=== PATIENT | female | born 1985 | race American Indian/Alaskan Native ===

== ENCOUNTER 2021-03-22 11:25 | Inpatient (IN) | payer OTHER ==
[2021-03-22] MEDS ORDERED: fentaNYL 100 MCG/2 ML INJ IV PRN (12:33)
[2021-03-22] MEDS ORDERED: TERBUTALINE 1 MG/1 ML INJ SUB-Q PRN (12:33)
[2021-03-22] MEDS ORDERED: OXYTOCIN 10 UNIT/1 ML INJ IM PRN (12:33)
[2021-03-22] MEDS ORDERED: METHYLERGONOVINE MALEATE 0.2 MG/ML VIAL IM PRN (12:33)
[2021-03-22] MEDS ORDERED: CARBOPROST TROMETHAMINE 250 MCG/1 ML INJ IM PRN (12:33)
[2021-03-22] MEDS ORDERED: ePHEDrine SULFATE 50 MG/1 ML INJ IV PRN ×2 (12:33→14:52)
[2021-03-22] MEDS ORDERED: BUTORPHANOL 2 MG/1 ML INJ IV PRN (12:33)
[2021-03-22] MEDS ORDERED: ACETAMINOPHEN 325 MG TAB PO PRN ×2 (12:33→17:15)
[2021-03-22] MEDS ORDERED: ONDANSETRON 4 MG/2 ML INJ IV PRN ×2 (12:33→17:15)
[2021-03-22] MEDS ORDERED: LOPERAMIDE 2 MG CAP PO PRN (12:33)
[2021-03-22] MEDS ORDERED: MINERAL OIL 30 ML ORAL LIQD PO PRN (12:33)
[2021-03-22] MEDS ORDERED: PROMETHAZINE 25 MG TAB PO PRN ×2 (12:33→17:15)
[2021-03-22] MEDS ORDERED: miSOPROStol 200 MCG TAB PR PRN (12:33)
[2021-03-22] MEDS ORDERED: NALOXONE 0.4 MG/1 ML INJ IV PRN (12:33)
[2021-03-22] MEDS ORDERED: LIDOCAINE (2%) 20 MG/1 ML VIAL 20 ML MDV INFILTRATI ONE (12:33)
--- NOTE | 2021-03-22 12:33 | History and Physical Report ---
History of Present Illness Date of examination: 03/22/21 Date of admission: 03/22/2021 Chief complaint: My water broke at 0930 and I'm michele. History of present illness: Presented to triage with c/o SROM @ 0930 am today for clear fluid and contractions. Cervical exam was 5/80/-2 with a small amount of clear fluid noted on peripad underneath patient. Also, a small amount of bloody show noted on pad and exam glove. EDC 03/21/2021 40.1 weeks on admission Past History : 8 Term Births: 6 Premature Births: 1 Living Children: 5 Spont. Ab: 1 # 1 Delivery date: 2001 Weeks Gestation: 40 Delivery type: Delivery location: [place] Sex: Female weight: 8-15 Comments: No complications # 2 Delivery date: 2008 Weeks Gestation: 37 Delivery type: Delivery location: [place] Sex: Female weight: 6-4 Comments: ? elevated BP's no medication, No IOL # 3 Delivery date: 2010 Weeks Gestation: 34 Delivery type: Delivery location: [place] Sex: Male weight: 6-9 Comments: Preeclampsia,spontaneous labor, No IOL, GDM # 4 Delivery date: 2012 Weeks Gestation: 39 Delivery type: Delivery location: [place] Sex: Male weight: 7-5 Comments: No complications # 5 Delivery date: 2015 Weeks Gestation: 37 Delivery type: Delivery location: [place] Sex: Male weight: 6-3 Comments: No complications # 6 Delivery date: 2018 Weeks Gestation: 38 Delivery type: Delivery location: [place] Sex: Male weight: 6-0 Comments: IOL, preclampsia # 7 Delivery date: 2013 Delivery type: SAB Comments: D&C Past Medical History: Sickle cell trait Enlarged thyroid Past Surgical History: D&C: Family History Summary: Other Family Member - Has No Family History of Uterine Cancer - Entered On: 10/06/2020 Other Family Member - Has No Family History of Stomach Cancer - Entered On: 10/06/2020 Other Family Member - Has No Family History of Spontaneous DVT-PE - Entered On: 10/06/2020 Other Family Member - Has No Family History of Small Bowel Cancer - Entered On: 10/06/2020 Other Family Member - Has No Family History of Pancreatic Cancer - Entered On: 10/06/2020 Other Family Member - Has No Family History of Ovarvian Cancer - Entered On: 10/06/2020 Other Family Member - Has No Family History of Kidney/Urinary Tract Cancer - Entered On: 10/06/2020 Other Family Member - Has No Family History of Colon Cancer - Entered On: 10/06/2020 Other Family Member - Has No Family History of Brain Cancer - Entered On: 10/06/2020 Other Family Member - Has No Family History of Biliary Tract Cancer - Entered On: 10/06/2020 Aunt - Has Family History of Cervical Cancer - paternal - Entered On: 10/06/2020 Aunt - Has Family History Breast Cancer - paternal - Entered On: 10/06/2020 Social History: Patient is single Smoking History: Patient is a former smoker. 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 Infection History Hx of STD: chlamydia HIV Risk Eval: no Personal hx. of genital herpes: no Partner hx. of genital herpes: no Rash, Viral, or Febrile illness since last LMP? no Varicella/Chicken Pox Status: Previous Disease TB Risk: no Infection History Comments: GC, trich Genetic History Congenital Heart Defect: Mom: no Dad: no Juany Disease: Mom: no Dad: no Thalassemia Mom: no Dad: no Neural Tube Defect Mom: no Dad: no Down's Syndrome Mom: no Dad: no Walker-Sachs Mom: no Dad: no Sickle Cell Disease/Trait Mom: yes Dad: no Comments: children Hemophilia Mom: no Dad: no Muscular Dystrophy Mom: no Dad: no Cystic Fibrosis Mom: no Dad: no Cornelius Chorea Mom: no Dad: no Mental Retardation Mom: no Dad: no Fragile X Mom: no Dad: no Other Genetic/Chromosomal Disorder Mom: no Dad: no Child w/other defect Mom: no Dad: no Enviromental Exposures Enviromental Exposures Reviewed Xray Exposure: no Medication, drug, or alcohol use since LMP: no Chemical/Other Exposure: no Exposure to Cat Liter: no Hx of Parvovirus (Fifth Disease): no Occupational Exposure to Children: other Current Allergies (reviewed today): No known allergies Past History Past Medical History: no pertinent history Past Surgical History: no surgical 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 Family/Genetic History: none Social history: no significant social history - Obstetrical History Expected Date of Delivery: 03/21/21 Actual Gestation: 40 Week(s) 1 Day(s) : 8 Para: 6 Hx # Term Pregnancies: 5 Number of Pregnancies: 1 Spontaneous Abortions: 1 Induced : 0 Number of Living Children: 6 Medications and Allergies Allergies Allergy/AdvReac Type Severity Reaction Status Date / Time No Known Allergies Allergy Unverified 03/22/21 12:53 Home Medications Medication Instructions Recorded Confirmed Last Taken Type No Known Home Medications [No 03/22/21 03/22/21 Unknown History Reported Home Medications] Review of Systems All systems: negative - Vital Signs Vital signs: Vital Signs Pulse Pulse Ox 76 99 03/22/21 11:58 03/22/21 11:58 Temp Pulse Resp BP Pulse Ox 88 129/76 99 03/22/21 12:28 03/22/21 11:59 03/22/21 12:28 - Physical Exam Breasts: Positive: deferred Cardiovascular: Regular rate Lungs: Positive: Normal air movement Abdomen: Positive: normal appearance, soft Genitourinary (Female): Positive: normal external genitalia, normal perenium Vulva: both: normal Vagina: Positive: normal moisture Uterus: Positive: normal size (For 40 weeks gestation. ) Extremities: Positive: normal - Obstetrical FHR: category 1 Uterine Contraction Monitor Mode: External Cervical Dilatation: 5 (No BOW felt during exam. ) Cervical Effacement Percentage: 80 station: -2 Uterine Contraction Pattern: Regular Uterine Tone Measurement Phase: Resting Uterine Contraction Intensity: Moderate Results All other labs normal. GBS NEGATIVE HBsAg Screen Negative Negative *1 RPR Non Reactive Non Reactive *2 Rubella Antibodies, IgG 3.53 index Immune >0.99 *3 Non-immune <0.90 Equivocal 0.90 - 0.99 Immune >0.99 ABO Grouping O *4 Rh Factor Positive *5 Please note: Prior records for this patient's ABO / Rh type are not available for additional verification. Antibody Screen Negative Negative *6 Tests: (5) HIV Ag/Ab with Reflex (818416) HIV Screen 4th Generation wRfx Non Reactive Non Reactive *39 Tests: (7) HCV Antibody reflex to TIM ([id number]) ! HCV Ab <0.1 s/co ratio 0.0-0.9 *41 Tests: (8) Interpretation: ([id number]) ! Interpretation: SPRCS *42 Negative Not infected with HCV, unless recent infection is suspected or other evidence exists to indicate HCV infection. Assessment and Plan A: 35 y.o. @ 40.1 wks, SROM @ 0930am clear fluid. Cervical exam /-2. - Patient Problems (1) Rupture of membranes with clear amniotic fluid Onset Date: ~03/22/21 Current Visit: Yes Status: Acute Plan to address problem: Check maternal temperature every 2 hours while in labor. (2) Post term over 40 weeks Current Visit: Yes Status: Acute Plan to address problem: Admit to labor and delivery. Initiate IV. Drawn admission labs. IV fluid bolus for epidural placement. Anticipate .
[2021-03-22] MEDS ORDERED: LACTATED RINGERS 1,000 ML IV SCH (12:45)
[2021-03-22] MEDS ORDERED: OXYTOCIN DRIP 30 UNITS/500 ML BAG IV SCH ×3 (13:00→18:00)
[2021-03-22 14:18] LABS: Hematocrit 31.7 % (30.3-42.9); Hemoglobin 10.7 gm/dl (10.1-14.3); Mean Corpuscular HGB Conc 34 % (30-34); Mean Corpuscular Volume 76 fl (79-97); Platelet Count 234 K/mm3 (140-440); Red Blood Count 4.19 M/mm3 (3.65-5.03)
[2021-03-22] MEDS ORDERED: fentaNYL-BUPIV 2 MCG/ML-0.125% 200 MCG/100 ML BAG EPIDURAL ONE (14:23)
[2021-03-22] MEDS ORDERED: BUPIVACAINE/PF (0.25%) 2.5 MG/ML 10 ML VIAL INFILTRATI ONE (14:43)
--- NOTE | 2021-03-22 14:51 | Anesthesia Consultation ---
Anesthesia Consult and Med Hx Date of service: 03/22/21 - Airway Anesthetic Teeth Evaluation: Poor ROM Head & Neck: Adequate Mental/Hyoid Distance: Adequate Mallampati Class: Class II Intubation Access Assessment: Good - Pulmonary Exam CTA: Yes - Cardiac Exam Cardiac Exam: RRR - Pre-Operative Health Status ASA Pre-Surgery Classification: ASA2 Proposed Anesthetic Plan: Epidural - Pulmonary Hx Smoking: Yes (stop 07/2020) Hx Asthma: No Hx Respiratory Symptoms: No SOB: No COPD: No Home Oxygen Therapy: No Hx Pneumonia: No Hx Sleep Apnea: No - Cardiovascular System Hx Hypertension: No Hx Coronary Artery Disease: No Hx Heart Attack/AMI: No Hx Angina: No Hx Percutaneous Transluminal Coronary Angioplasty (PTCA): No Hx Cardia Arrhythmia: No Hx Pacemaker: No Hx Internal Defibrillator: No Hx Valvular Heart Disease: No Hx Heart Murmur: No Hx Peripheral Vascular Disease: No - Central Nervous System Hx Neuromuscular Disorder: No Hx Seizures: No CVA: No Hx Back Pain: Yes Hx Psychiatric Problems: No - Gastrointestinal Hx Ulcer: No Hx Gastroesophageal Reflux Disease: Yes - Endocrine Hx Renal Disease: No Hx End Stage Renal Disease: No Hx Cirrhosis: No Hx Liver Disease: No Hx Insulin Dependent Diabetes: No Hx Non-Insulin Dependent Diabetes: No Hx Thyroid Disease: No Hx Hypothyroidism: No Hx Hyperthyroidism: No - Hematic Hx Anemia: No Hx Sickle Cell Disease: No - Other Systems Hx Alcohol Use: No Hx Substance Use: No Hx Cancer: No Hx Obesity: Yes
[2021-03-22] MEDS ORDERED: NALOXONE 2 MG/2 ML INJ IV PRN (14:52)
[2021-03-22] MEDS ORDERED: fentaNYL-BUPIV 2 MCG/ML-0.125% 200 MCG/100 ML BAG EPIDURAL SCH (15:00)
--- NOTE | 2021-03-22 15:25 | Progress Note ---
Labor Epidural - Labor Epidural Start Time: 14:59 Stop Time: 15:10 Performed by:: JOSE HOLT Procedure: Patient is requesting a laboring epidural for laboring pain. Patient IDed, H&P reviewed, all questions and concerns were answered, and consent was signed. Timeout was performed at bedside. Patient in sitting position. Sterile prep and drape was performed. [3] ml of 1% lidocaine skin wheal at L[3]- L [4]. 18- gauge Princess epidural needle was advanced to loss of resistance with saline technique 7cm. Negative CSF negative blood. Epidural catheter advanced to [11] centimeters. [NEGATIVE] Aspiration [NEGATIVE] test dose. Sterile dressing applied. Patient tolerated procedure.
--- NOTE | 2021-03-22 17:12 | Procedure Note ---
OB Delivery Note - Delivery Date of Delivery: 03/22/21 Landcare Officer: ARIANA ANDRESON Estimated blood loss: other (150 ml) - Vaginal Delivery presentation: vertex Delivery position: OA Intrapartum events: none Delivery induction: none Delivery augmentation: pitocin Delivery monitor: external FHT, external uterine Route of delivery: Delivery placenta: spontaneous Delivery cord: 3 umbilical vessels Episiotomy: none Delivery laceration: none Anesthesia: epidural Delivery comments: of viable male infant. Infant to mother's abdomen for skin to skin. Cord cut by FOC after cessation of pulse. Spontaneous delivery of placenta, intact, complete, 3 vessels noted. Perineum and vagina inspected. No lacerations noted. Fundus firm, minimal bleeding noted. EBL 150ml. Apgars 9,9. Infant weight 8-0. Sponges and instruments counted with RN and correct. Infant and mother left in stable condition in care of RN. - A at 1 minute: 9 at 5 minutes: 9 Gender: Male (8-0. Noel)
[2021-03-22] MEDS ORDERED: HYDROCORTISONE 25 MG RECTAL SUPP PR PRN (17:15)
[2021-03-22] MEDS ORDERED: BENZOCAINE/MENTHOL 20/0.5% TOP SPRAY 56 GM TP PRN (17:15)
[2021-03-22] MEDS ORDERED: WITCH HAZEL/ GLYCERIN PAD TP PRN (17:15)
[2021-03-22] MEDS ORDERED: PROMETHAZINE 25 MG RECT SUPP PR PRN (17:15)
[2021-03-22] MEDS ORDERED: oxyCODONE /ACETAMINOPHEN 5-325MG TAB PO PRN (17:15)
[2021-03-22] MEDS ORDERED: MAGNESIUM HYDROXIDE (MOM) ORAL LIQD UDC PO PRN (17:15)
[2021-03-22] MEDS ORDERED: miSOPROStol 100 MCG TAB PR PRN (17:15)
[2021-03-22] MEDS ORDERED: diphenhydrAMINE 25 MG CAP PO PRN (17:15)
[2021-03-22] MEDS ORDERED: LANOLIN/ZINC/DIMETHICONE (LANSINOH) 7 GM TP PRN ×2 (17:15)
[2021-03-22] MEDS ORDERED: ACETAMINOPHEN 500 MG TAB PO PRN (17:49)
[2021-03-23] MEDS ORDERED: TETANUS,DIPH,PERTUSS(ACELL) VACCINE 0.5 ML SYRINGE IM ONE (06:00)
[2021-03-23] MEDS: IBUPROFEN 600 MG TAB PO SCH ×3 (09:56→22:05)
[2021-03-23] MEDS: PRENATAL VIT27-FE FUMARATE-FOLIC ACID VIT TAB PO SCH (09:57)
[2021-03-23] MEDS: DOCUSATE SODIUM 100 MG CAP PO SCH ×2 (09:57→22:05)
[2021-03-23 10:23] LABS: Hematocrit 31.2 % (30.3-42.9); Hemoglobin 10.5 gm/dl (10.1-14.3)
--- NOTE | 2021-03-23 10:37 | Progress Note ---
Assessment and Plan Pt denies CALERO, vision changes, and pain at this time. Reports desires for discharge home, circumcision, and Nuvaring for PP BC. Elevated BP and severe PP risks reviewed with pt, including but not limited to seizure, stroke, heart attack, and . POC d/w pt for continued monitoring in hospital and antihypertensives PO. Pt reports increased pain when BP taken this am. Pt declines POC and reports desires to d/c home AMA at this time. Dr Gandhi made aware. @1240 repeat BP 156/90; CNM @bedside, Pt denies CALERO, vision changes, and pain at this time. POC reviewed for continued admission with antihypertensives PO and Pt agrees. Orders placed for Preeclampsia labs per Dr Gandhi request. - Patient Problems (1) Elevated BP without diagnosis of hypertension Current Visit: Yes Status: Acute Plan to address problem: Dr Gandhi made aware Labetalol 200mg BID ordered and d/w pt Monitor closely and notify provider with any changes in status (2) Spontaneous vaginal delivery Current Visit: Yes Status: Acute Subjective - Subjective Date of service: 03/23/21 Principal diagnosis: PP day #0, Patient reports: appetite normal, voiding normally, pain well controlled, ambulating normally, no dizzy ambulation, no appetite poor, no nauseated [place]: doing well Objective - Vital Signs Latest vital signs: Vital Signs Temp Pulse Resp BP BP Pulse Ox Pulse Ox 03/23/21 08:20 97.7 F 58 L 16 144/85 98 03/23/21 05:27 14 03/23/21 04:16 12 03/23/21 04:08 98.0 F 68 18 134/84 100 03/23/21 00:30 98.6 F 78 18 115/78 03/22/21 22:00 98.5 F 80 14 123/76 98 98 03/22/21 20:58 64 99 03/22/21 20:53 66 98 03/22/21 20:48 79 97 03/22/21 20:43 73 98 03/22/21 20:38 77 99 03/22/21 20:33 69 98 03/22/21 20:28 67 98 03/22/21 20:23 68 99 03/22/21 20:18 60 99 03/22/21 20:13 64 99 03/22/21 20:08 70 99 03/22/21 20:03 71 98 03/22/21 19:58 72 98 03/22/21 19:53 74 98 03/22/21 19:48 70 99 03/22/21 19:44 99 03/22/21 19:43 98.0 F 66 20 99 03/22/21 19:42 69 120/75 03/22/21 19:41 46 L 83 L 03/22/21 18:13 62 117/73 03/22/21 18:11 66 97 03/22/21 18:05 69 98 03/22/21 18:00 68 99 03/22/21 17:58 63 117/84 94 03/22/21 17:55 61 98 03/22/21 17:50 66 98 03/22/21 17:47 69 89 03/22/21 17:45 67 99 03/22/21 17:43 71 116/81 03/22/21 17:40 68 99 03/22/21 17:35 69 100 03/22/21 17:33 83 93 03/22/21 17:30 82 97 03/22/21 17:28 75 117/69 03/22/21 17:27 84 82 L 03/22/21 17:26 98.2 F 16 03/22/21 17:25 80 92 03/22/21 17:22 58 L 85 03/22/21 17:20 79 99 03/22/21 17:16 86 93 03/22/21 17:15 84 98 03/22/21 17:13 74 117/69 03/22/21 17:10 190 H 97 03/22/21 17:05 84 90 03/22/21 17:04 49 L 86 03/22/21 17:02 71 120/75 03/22/21 17:00 75 99 03/22/21 16:58 75 114/65 03/22/21 16:54 86 98 03/22/21 16:52 87 90 03/22/21 16:49 82 97 03/22/21 16:44 73 117/69 98 03/22/21 16:39 67 99 03/22/21 16:34 77 97 03/22/21 16:32 72 94 03/22/21 16:29 72 125/80 95 03/22/21 16:24 74 99 03/22/21 16:19 79 98 03/22/21 16:14 76 97 03/22/21 16:13 77 136/88 03/22/21 16:09 75 99 03/22/21 16:04 82 98 03/22/21 16:00 82 137/85 03/22/21 15:59 80 99 03/22/21 15:54 81 99 03/22/21 15:49 80 98 03/22/21 15:44 81 137/83 96 03/22/21 15:39 92 H 99 03/22/21 15:34 91 H 99 03/22/21 15:29 85 97 03/22/21 15:28 80 137/78 03/22/21 15:24 78 135/72 98 03/22/21 15:20 16 03/22/21 15:19 82 134/71 99 03/22/21 15:16 84 128/65 03/22/21 15:14 83 129/68 98 03/22/21 15:12 78 134/69 03/22/21 15:09 79 100 03/22/21 15:04 80 154/84 100 03/22/21 14:59 76 100 03/22/21 14:54 85 96 03/22/21 14:49 71 99 03/22/21 14:44 80 99 03/22/21 14:39 70 99 03/22/21 14:34 80 98 03/22/21 14:29 77 97 03/22/21 14:24 106 H 97 03/22/21 14:19 78 97 03/22/21 14:14 75 98 03/22/21 14:09 86 98 03/22/21 14:04 82 98 03/22/21 13:59 75 98 03/22/21 13:56 98 03/22/21 13:54 81 97 03/22/21 13:49 72 96 03/22/21 13:48 75 132/83 03/22/21 13:26 98.3 F 03/22/21 12:58 75 99 03/22/21 12:53 82 98 03/22/21 12:48 83 97 03/22/21 12:43 77 99 03/22/21 12:38 85 98 03/22/21 12:37 80 92 03/22/21 12:33 83 99 03/22/21 12:28 88 99 03/22/21 12:23 83 98 03/22/21 12:18 79 98 03/22/21 12:13 79 99 03/22/21 12:08 82 98 03/22/21 12:03 89 99 03/22/21 11:59 79 129/76 03/22/21 11:58 76 99 Intake and Output 03/22/21 03/23/21 03/23/21 23:59 07:59 15:59 Intake Total 360 800 Output Total 700 1500 Balance -340 -700 Intake: Oral 360 200 Intake, Free Water 600 Output: Urine 700 1500 Indwelling Catheter 700 Void 1500 Other: Total, Intake Amount 360 200 Total, Output Amount 300 600 # Voids Void 1 Estimated Blood Loss 150 - Exam Breasts: Present: normal Cardiovascular: Present: Regular rate Lungs: Present: Clear to auscultation, Normal air movement Abdomen: Present: normal appearance, soft. Absent: distention, guarding Vulva: both: normal Uterus: Present: normal, firm, fundal height below umbilicus Extremities: Present: normal Comments: scant vaginal bleeding - Labs Labs: Abnormal lab results 03/22/21 Range/Units 13:38 MCV 76 L (79-97) fl MCH 26 L (28-32) pg
--- NOTE | 2021-03-23 18:38 | Post Anesthesia Evaluation ---
- Post Anesthesia Evaluation Patient Participated: Yes Airway Patent: Yes Stable Respiratory Function: Yes Nausea/Vomiting: No Temp > 96.8F: Yes Pain Manageable: Yes Adequeate Hydration: Yes Anesthesia Complications: No Block Receding Appropriately: Yes Patient on Ventilator: No
[2021-03-23 19:26] LABS: Hemoglobin 10.3 gm/dl (10.1-14.3); Mean Corpuscular HGB Conc 34 % (30-34); Mean Corpuscular Volume 75 fl (79-97); Platelet Count 242 K/mm3 (140-440); Red Cell Distribution Width 14.4 % (13.2-15.2)
[2021-03-23 19:50] LABS: Alanine Aminotransferase 6 units/L (7-56); Uric Acid 4.6 mg/dL (3.5-7.6)
[2021-03-24] MEDS: IBUPROFEN 600 MG TAB PO SCH (06:10)
--- NOTE | 2021-03-24 07:01 | Discharge Summary ---
Providers - Providers Date of Admission: 03/22/21 12:33 Date of discharge: 03/24/21 (pt desires d/c; RTO Tuesday for BP check) Attending physician: NILSA PICKERING Primary care physician: NILSA PICKERING Hospitalization Reason for admission: active labor Delivery: Episiotomy: none Laceration: none Incision: normal Other procedures: none complications: other (covid+) Discharge diagnosis: IUP at term delivered baby: male Hospital course: Uncomplicated vaginal delivery PP complicated by elevated BP Started on Labetalol 200mg BID will continue at home Pt in good spirits anxious to go home. Pt PUI for declining Covid test. BP 140-120/80-60 FF below umb Lochia small Perineum intact . H&H 06/06 No s/sx of anemia Doing well s/p vag delivery Stable BP on Labetalol P: d/c today with instructions RTO Tuesday for BP check RX Labetalol on chart. Condition at discharge: Good Disposition: 01 HOME / SELF CARE / HOMELESS - Discharge Diagnoses (1) Elevated BP without diagnosis of hypertension Status: Acute Comment: Pt stable on Labetalol 200mg po BID Will RTO Tuesday for BP check (2) Spontaneous vaginal delivery Status: Acute Comment: RTO 4 weeks PP Care Plan - Discharge Medications Prescriptions: Lidocain2.5%/Prilocai2.5% [Emla] 1 applic TP ONCE #1 tube labetaloL [Labetalol 200mg TAB] 200 mg PO BID #60 tablet Ibuprofen [Motrin] 800 mg PO Q8HR PRN #30 tablet PRN Reason: Pain, Moderate (4-6) - Provider Discharge Summary Activity: routine, no sex for 6 weeks, no heavy lifting 4 weeks, no strenuous exercise Diet: routine Instructions: routine Additional instructions: [] Smoking cessation referral if applicable(refer to patient education folder for contact #) [] Refer to [facility] Booklet Call your doctor immediately for: * Fever > 100.5 * Heavy vaginal bleeding ( >1 pad per hour) * Severe persistent headache * Shortness of breath * Reddened, hot, painful area to leg or breast * Drainage or odor from incision. * Keep incision clean and dry at all times and follow doctor's instructions regarding bathing/showering - Follow up plan Follow up: NILSA PICKERING MD [Primary Care Provider] - 03/27/21 11:00 am (Congratulations! Please call [phone] to schedule your son's circumcision in 1 week. Keep your appointment for blood pressure check on Tuesday03-27-21 @ 11:00 in [place] office. Bring the EMLA cream with you to his visit. Do NOT use at home. Take your medications as prescribed. Call with headache, not relieved with Tylenol, blurred vision, chest pain. Call with any concerns.)
[2021-03-24] MEDS: DOCUSATE SODIUM 100 MG CAP PO SCH (11:12)
[2021-03-24] MEDS: PRENATAL VIT27-FE FUMARATE-FOLIC ACID VIT TAB PO SCH (11:12)
[2021-03-24 17:58] VITALS: BP 139/87
== END 2021-03-24 17:30 | disposition home or self-care (01) | DRG 774 ==
LOC: TRG 11:25 → APU 11:27 → LD 12:33 → TRG 12:33 → OB 21:43
PROVIDERS: ADMIT Obstetrics & Gynecology; ATTEND Obstetrics & Gynecology
PROC: 10E0XZZ Delivery of Products of Conception, External Approach (ICD-10-PCS; principal; 2021-03-22)
PROC: 3E0R3BZ Introduction of Anesthetic Agent into Spinal Canal, Percutaneous Approach (ICD-10-PCS; 2021-03-22)
PROC: 00HU33Z Insertion of Infusion Device into Spinal Canal, Percutaneous Approach (ICD-10-PCS; 2021-03-22)
PROC: 3E0234Z Introduction of Serum, Toxoid and Vaccine into Muscle, Percutaneous Approach (ICD-10-PCS; 2021-03-23)
DX: O48.0 Post-term pregnancy (principal); O90.89 Other complications of the puerperium, not elsewhere classified; Z3A.40 40 weeks gestation of pregnancy; Z37.0 Single live birth; R03.0 Elevated blood-pressure reading, without diagnosis of hypertension; Z23 Encounter for immunization; Z87.891 Personal history of nicotine dependence; O99.214 Obesity complicating childbirth; O99.62 Diseases of the digestive system complicating childbirth; K21.9 Gastro-esophageal reflux disease without esophagitis; E66.9 Obesity, unspecified
CPT/HCPCS: 36415; 82565; 83615; 84450; 84460; 84550; 85014; 85018; 85027; 86592; 86850; 86900; 86901; G0378; J2590; J3010